=== PATIENT | female | born 1960 | race Caucasian/White ===

== ENCOUNTER 2024-04-12 19:08 | Emergency (ER) | payer OTHER, SELFPAY ==
[2024-04-12 19:14] VITALS: BP 141/75
[2024-04-12 19:24] VITALS: BMI 27.4
[2024-04-12 19:29] LABS: % Basophils 0.5 % (0-2); % Eosinophils 2.4 % (0-6); % Immature Granulocytes 0.1 % (0-0.5); % Lymphocytes 40.9 % (20.5-51.1); % Monocytes 9.5 % (1.7-9.3); % Neutrophils 46.6 % (42.2-75.2); Absolute Eosinophils 0.2 10^3/uL (0-0.7); Absolute Lymphocytes 3.4 10^3/uL (1.2-3.4); Absolute Monocytes 0.8 10^3/uL (0.1-0.6); Absolute Neutrophils 3.9 10^3/uL (1.4-6.5); Hematocrit 37.2 % (37.0-47.0); Hemoglobin 13.4 g/dL (12.0-16.0); Mean Corpuscular Hgb 30.9 pg (27.0-31.0); Mean Corpuscular Volume 85.7 fL (81.0-99.0); Mean Platelet Volume 9.2 fL (7.4-10.4); Nucleated Red Blood Cells % 0 %; Platelet Count 233 10^3/uL (130-400); Red Blood Cell Count 4.34 10^6/uL (4.20-5.40); Red Cell Dist. Width 11.7 % (11.5-14.5); White Blood Cell Count 8.3 10^3/uL (4.8-10.8)
[2024-04-12 19:31] VITALS: BP 141/86
[2024-04-12 19:47] LABS: ALT (SGPT) 30 U/L (0-35); AST (SGOT) 33 U/L (14-36); Albumin 4.5 g/dl (3.5-5.0); Alkaline Phosphatase 75 U/L (38-126); Blood Urea Nitrogen 12 mg/dl (7-17); Calcium 9.6 mg/dl (8.4-10.2); Carbon Dioxide 24 mmol/L (22-30); Chloride 100 mmol/L (98-107); Estimated Creatinine Clearance 90 ml/min; Glucose 124 mg/dl (70-99); Potassium 3.8 mmol/L (3.5-5.1); Sodium 133 mmol/L (135-145); Total Bilirubin 0.7 mg/dl (0.2-1.3); eGFR > 60.00
[2024-04-12 20:05] LABS: Troponin I < 0.012 ng/ml
[2024-04-12 20:08] VITALS: BP 147/81
[2024-04-12 21:00] VITALS: BP 138/85
[2024-04-12 21:45] LABS: TSH 4.98 uIU/ml (0.47-4.68)
--- NOTE | 2024-04-12 21:46 | ED.GENMED ---
History of Present Illness
General
Chief Complaint: Fainting/Passed Out
Source: patient
Exam Limitations: none
Time Seen by Provider: 04/12/24 19:29
Nursing documentation reviewed up to this point in time: agreed with
History of Present Illness
History of Present Illness:
63-year-old female past medical history of GERD hypertension presenting to the emergency department today with concerns of a syncopal episode at a wedding today. She claims that she was out much longer than usual today did not drink much fluid and
also did not eat dinner had a few alcoholic beverages felt lightheaded was helped to a chair still felt lightheaded and then fell to the ground. She was helped to the ground and did not sustain any trauma which was described by bystanders. Denies
any chest pain shortness of breath palpitations associated
Review of Systems
Review of Systems
Allergies reviewed?: Yes
All Other Systems: ROS reviewed and negative except as documented in HPI and ROS
Phy Exam
Physical Exam
Physical Exam:
GENERAL: Alert , in no apparent distress
EYE: pupils equal and reactive
NECK: Supple, no significant adenopathy.
ENT: o/p clr, mmm.
CARDIAC: Regular rate and rhythm .
LUNGS: Clear breath sounds bilaterally, no acute respiratory distress, no wheezes/rales/rhonchi
ABDOMEN: Soft, without focal tenderness, no r/g, no cvat
NEUROLOGICAL: Alert and oriented, no focal neuro deficits 5-5 upper and lower extremity strength normal sensation with palpating bilaterally.
SKIN: Warm and dry, skin intact.
MUSCULOSKELETAL: No edema, well perfused.
PSYCH: Normal and appropriate interaction.
Course
Orders/Labs/Results
Orders:
Orders
04/12/24 19:18
Electrocardiogram (*1) Urgent
Reason for Study: Syncope
EKG- Treatment ONCE
04/12/24 19:19
Complete Blood Count/With Diff Urgent
Comprehensive Metabolic Panel Urgent
TSH Urgent
Troponin I Urgent
04/12/24 20:11
Add On- LAB Stat
Tests Added?: TSH
Abnormal Lab Results
04/12/24
19:19
Absolute Monos (auto) 0.8 H 10^3/uL
(0.1-0.6)
Monocytes % 9.5 H %
(1.7-9.3)
Sodium 133 L mmol/L
(135-145)
Glucose 124 H mg/dl
(70-99)
TSH 4.98 H uIU/ml
(0.47-4.68)
04/12/24 19:19
04/12/24 19:19
Vital Signs
Initial and Last Documented VS:
Initial Vital Signs
BP
141/75
04/12/24 19:14
Last Documented Vital Signs
Temp Pulse Resp BP Pulse Ox
98.3 F 77 23 138/85 100
04/12/24 19:31 04/12/24 21:15 04/12/24 20:15 04/12/24 21:00 04/12/24 19:31
MDM/Problems Addressed
MDM/Problems Addressed:
63-year-old female presenting to the emergency department today with concerns of a syncopal episode at a wedding. This occurred after drinking some alcohol with lack of food or some significant hydration prior. She is a patient is well-appearing
no distress bowel signs are normal patient with normal labs troponin and EKG. Patient appears stable for discharge return precautions given.
*Critical Care Note
Total Time (30-74mins, 75-104mins- exclusive of procedures): Not Applicable
ED Attending Note
-
Portions of this chart may have been created with voice recognition software.� Occasional wrong word or��sound alike� substitutions may have occurred due to the inherent limitations of voice recognition software.
Discharge Plan
Departure
Patient Disposition: Home (Routine Discharge)
Date of Disposition: 04/12/24
Time of Disposition: 21:50
Patient with high blood pressure during this ER visit?: No
Condition: Good
Covid-19: Not Applicable
Discharge Problem:
Syncope
Instructions: Syncope (Fainting) (DC)
Prescriptions:
No Action
atenolol 50 mg Tablet
50 mg PO DAILY
famotidine [Pepcid] 40 mg Tablet
40 mg PO DAILY
buspirone [BuSpar] 10 mg Tablet
10 mg PO BID
Referrals:
Tammy Hough DO [Family Provider] -
Activity Restrictions/Additional Instructions:
You came to the emergency department today after syncopal episode. Please have close with the primary care doctor. Return to the emergency department for any worsening, new or concerning symptoms.
Interventions
Interventions:
*Risk Screen - Suicide Last Done: 04/12/24 19:32
*General Assessment Last Done: 04/12/24 19:40
*Neglect/Abuse Screening Last Done: 04/12/24 19:32
*ED COVID-19 Vaccine History Last Done: 04/12/24 19:40
ED- Cardiac Assessment Last Done: 04/12/24 19:41
ED- Neurological Assessment Last Done: 04/12/24 19:26
Discharge Date and Time
Print Language: RUSSIAN
== END 2024-04-12 22:12 | disposition home or self-care (01) ==
LOC: EMR 19:08
PROVIDERS: EMERGENCY PHYSICIAN Student in an Organized Health Care Education/Training Program; FAMILY PHYSICIAN Student in an Organized Health Care Education/Training Program
DX: R55 Syncope and collapse (principal); W19.XXXA Unspecified fall, initial encounter; K21.9 Gastro-esophageal reflux disease without esophagitis; I10 Essential (primary) hypertension; M43.22 Fusion of spine, cervical region
CPT/HCPCS: 99283; 80053; 84443; 84484; 85025; 93005